=== PATIENT | female | born 1985 | race Caucasian/White ===

== ENCOUNTER 2022-01-19 11:15 | Outpatient (REF) | payer BC, SELFPAY ==
[2022-01-19 12:34] LABS: Influenza A PCR NEGATIVE (Negative); Influenza B PCR NEGATIVE (Negative); Resp Syncy Virus RNA Qual PCR NEGATIVE (Negative); SARS COV2 PCR INHOUSE NEGATIVE (Negative)
== END 2022-01-19 11:16 | disposition home or self-care (01) ==
LOC: HO.LNP 11:15
PROVIDERS: Visit Provider Family Medicine
DX: Z20.822 Contact with and (suspected) exposure to COVID-19 (principal)
CPT/HCPCS: 0241U

== ENCOUNTER 2023-06-26 13:15 | Outpatient (AMB) | payer BC, SELFPAY ==
--- NOTE | 2023-06-26 14:38 | MHC.OFFWIV ---
Intake Vital Signs 06/26/23 15:05 Height 5 ft 8 in Weight 297 lb BMI 45.2 BP 130/88 Blood Pressure Location Lt brachial Position Sitting Pulse 79 Pulse Source Pulse Oximeter Temp 98.0 F Temp Source Temporal Artery Scan Pulse Oximetry (%) 97 Oxygen Delivery Method Room Air Intake Visit Reasons: EP Sore throat, cough, body aches [phone] Intake Note: pt is here today for sore throat cough body aches started monday Patient Tobacco Use Status: Never used Tobacco Is last menstrual period known: Yes Patient : No Allergies No Known Allergies Allergy (Verified 01/19/22 08:43) Do you need a note to return to daycare/school/sports/work: No HPI HPI Comments History of Present Illness Details Patient presents to the walk-in today with complaints of cough and sore throat for last 5 days Patient denies fever, headache, body aches, chills, chest pain, shortness of breath Denies known sick contact but states she was [facility] week right before this started Patient taking [id number] DayQuil with some relief [facility] Social History Patient Tobacco Use Status: Never used Tobacco Patient : No Review of Systems Const All systems reviewed & are unremarkable except as noted in HPI and below Physical Exam Vital Signs: Last Vital Signs Temp 98.0 F 06/26/23 15:05 Pulse 79 06/26/23 15:05 BP 130/88 06/26/23 15:05 Pulse Ox 97 06/26/23 15:05 Oxygen Delivery Method Room Air 06/26/23 15:05 BMI result Body Mass Index 45.2 General: awake, alert, oriented. Answers questions appropriately. Fully engaged in examination. Skin: warm, dry, intact HEENT: TMs intact bilaterally, without erythema or exudate. Posterior pharynx without erythema or exudate. Sclera without icterus or injection. Cardiac: External chest normal in appearance. Respiratory: + barking cough. LSCTAB. Abdomen: without gross distension. Neurological: Oriented to person, place, time and situation. Thought process intact. Psychiatric: Appropriate mood and affect. Good judgment and insight. Results AMB Rapid Strep AMB Rapid Strep Negative Last Edit by Tramaine Harman CMA on 06/26/23 17:34 Results Reviewed Results Reviewed: Laboratory Last Values Strep Scn Rapid Clinic Negative 06/26/23 17:34 Rapid strep negative Assessment & Plan Assessment & Plan (1) Bronchitis: Code(s): J40 - Bronchitis, not specified as acute or chronic (2) Viral illness: Code(s): B34.9 - Viral infection, unspecified Plan Bronchitis: Rapid strep negative Benzonatate 100mg po bid as needed Azithromycin as directed Rest, drink plenty of fluids, tylenol or motrin as needed. Follow up with pcp or in clinic for any new or worsening symptoms. Go to ER for shortness of breath, chest pain, palpitations, weakness, dizziness. Orders: Orders AMB Rapid Strep Screen 06/26/23 Z13.9 - Encounter for screening, unspecified Medications: New azithromycin For 250 mg dose pack: take 500 mg today (day 1), then 250 mg for 4 days (days 2-5) PO 6 tabs 0RF benzonatate 100 mg PO BID PRN 20 caps 0RF cough Coding Level of Care Code Est Pt Level 4 (11158) Diagnoses Bronchitis J40 Viral illness B34.9
[2023-06-26 15:05] VITALS: BP 130/88; PULSE 79; TEMP 36.7; O2SAT 97; BMI 45.2
== END 2023-06-26 15:19 | disposition home or self-care (01) ==
PROVIDERS: Visit Provider Registered Nurse Emergency
DX: J02.9 Acute pharyngitis, unspecified (principal)
CPT/HCPCS: 87880; 99213